=== PATIENT | male | born 1935 | race Caucasian/White ===

== ENCOUNTER → 2016-05-18 | Outpatient (CLI) | payer OTHER ==
[~2016-05-18] MED LIST: ALDACTONE25 MG PO; ECO81 PO; LANTUS SOLOS100 U/M1 SQ; LOP600 PO; METFORMIN HCL850 MG PO; PRILOSEC20 MG PO; PRINIVIL10 MG PO; ZOC10 PO
[2016-05-18 11:58] LABS: CALCIUM 8.6 mg/dL (8.5-10.1); CHLORIDE SERUM 106 mmol/L (98-107); CHOLESTEROL 250 mg/dL (<200); CHOLESTEROL/HDL RATIO 6.8; CREATININE SERUM 0.9 mg/dL (0.7-1.3); GLUCOSE SERUM 78 mg/dL (74-106); HDL CHOLESTEROL 37 mg/dL (40-60); POTASSIUM SERUM 3.7 mmol/L (3.5-5.1); SODIUM SERUM 142 mmol/L (136-145); TRIGLYCERIDES 224 mg/dL (<150)
[2016-05-18 12:36] LABS: BASOPHIL % 0.6 % (0-2); PLATELET COUNT 322 x10^3mcL (130-400)
[2016-05-18 12:39] LABS: RED CELL DISTRIBUTION WIDTH 14.8 % (11.5-14.5)
== END | disposition home or self-care (01) ==
LOC: LB 11:14
PROVIDERS: Family Medicine
DX: E11.9 Type 2 diabetes mellitus without complications (principal); R60.9 Edema, unspecified

== ENCOUNTER 2016-09-26 16:33 | Inpatient (IN) | payer OTHER ==
[~2016-09-26] VITALS: Ht 165.1 cm; Wt 97.6 kg
[2016-09-26 21:59] LABS: BASOPHIL % 0.7 % (0-2); PLATELET COUNT 343 x10^3mcL (130-400)
[2016-09-26 22:04] LABS: RED CELL DISTRIBUTION WIDTH 15.2 % (11.5-14.5)
[2016-09-26 22:19] LABS: CALCIUM 9.3 mg/dL (8.5-10.1); CARBON DIOXIDE 24.3 mmol/L (21-32); CHLORIDE SERUM 108 mmol/L (98-107); CREATININE SERUM 1.1 mg/dL (0.7-1.3); GLUCOSE SERUM 92 mg/dL (74-106); POTASSIUM SERUM 4.3 mmol/L (3.5-5.1); SODIUM SERUM 144 mmol/L (136-145)
[2016-09-26 22:23] LABS: ALBUMIN 3.8 g/dL (3.4-5.0); ALKALINE PHOSPHATASE 71 U/L (46-116); ALT/SGPT 23 U/L (16-63); AMYLASE 72 U/L (25-115); AST/SGOT 14 U/L (15-37); BILIRUBIN TOTAL 0.24 mg/dL (0.20-1.00); LIPASE 146 IU/L (73-393)
[2016-09-26 22:24] LABS: TOTAL PROTEIN, SERUM 8.3 g/dL (6.4-8.2)
[2016-09-27 00:36] VITALS: BP 165/95
[2016-09-27 01:04] VITALS: BP 144/88
[2016-09-27 02:59] LABS: T3 TOTAL 1.05 ng/mL
[2016-09-27 03:10] LABS: FREE T4 1.26 ng/dL (0.76-1.46); FREE THYROXINE INDEX 3.6 ug/dL (1.4-4.5); T4(THYROXINE) 9.6 ug/dL (4.7-13.3)
[2016-09-27 03:13] LABS: MAGNESIUM 1.6 mg/dL (1.8-2.4); PHOSPHOROUS 3.2 mg/dL (2.5-4.9)
[2016-09-27 06:13] VITALS: BP 144/84
[2016-09-27 07:20] VITALS: BP 161/82
[2016-09-27 08:03] LABS: UA SPECIFIC GRAVITY 1.025 (1.005-1.035); microscopic required? YES; urine erythrocyte NEGATIVE (NEGATIVE)
[2016-09-27 08:54] LABS: AMPHETAMINE QUAL UR NONE DETECTED (NEG <=1000)
[2016-09-27 17:53] VITALS: BP 146/80
[2016-09-27 23:26] VITALS: BP 116/64
[2016-09-28 06:28] VITALS: BP 139/72
[2016-09-28 07:18] VITALS: Ht 165.1 cm; Wt 97.6 kg
[2016-09-28 08:17] LABS: PLATELET COUNT 325 x10^3mcL (130-400)
[2016-09-28 08:18] LABS: RED CELL DISTRIBUTION WIDTH 15.2 % (11.5-14.5)
[2016-09-28 08:51] LABS: CARBON DIOXIDE 19.3 mmol/L (21-32); CHLORIDE SERUM 107 mmol/L (98-107); CREATININE SERUM 1.1 mg/dL (0.7-1.3); GLUCOSE SERUM 137 mg/dL (74-106); MAGNESIUM 1.9 mg/dL (1.8-2.4); PHOSPHOROUS 3.4 mg/dL (2.5-4.9); POTASSIUM SERUM 4.4 mmol/L (3.5-5.1); SODIUM SERUM 141 mmol/L (136-145)
[2016-09-28 09:06] LABS: BAND NEUTROPHIL 1 % (0-10); BASOPHIL 0 % (0-2); MONOCYTE 7 % (0-7); SEGMENTED NEUTROPHILS 56 % (37-75); rbc morphology (normal/abnorm) ABNORMAL (NORMAL)
[2016-09-28 10:45] VITALS: BP 115/55
[2016-09-28 11:10] VITALS: BP 122/71
[2016-09-28] MEDS ORDERED: METOPROLOL TART25 M1 PO (12:56)
[2016-09-28] MEDS ORDERED: BG FS (12:58)
[2016-09-28] MEDS ORDERED: TYL325 PO (12:58)
[2016-09-28] MEDS ORDERED: CLOPIDOGREL75 M1 PO (13:23)
[2016-09-28 13:37] VITALS: BP 122/71
== END 2016-09-28 14:20 | disposition short-term general hospital (02) | DRG 286 ==
LOC: ED 16:33 → DU 22:49
PROVIDERS: Emergency Medicine; Internal Medicine Interventional Cardiology; ADMIT Family Medicine
PROC: B2151ZZ Fluoroscopy of Left Heart using Low Osmolar Contrast (ICD-10-PCS; 2016-09-28)
PROC: B2101ZZ Fluoroscopy of Single Coronary Artery using Low Osmolar Contrast (ICD-10-PCS; 2016-09-28)
PROC: 4A023N7 Measurement of Cardiac Sampling and Pressure, Left Heart, Percutaneous Approach (ICD-10-PCS; principal; 2016-09-28 08:30)
DX: I24.9 Acute ischemic heart disease, unspecified (principal); N17.0 Acute kidney failure with tubular necrosis; I50.43 Acute on chronic combined systolic (congestive) and diastolic (congestive) heart failure; E11.65 Type 2 diabetes mellitus with hyperglycemia; E11.51 Type 2 diabetes mellitus with diabetic peripheral angiopathy without gangrene; I10 Essential (primary) hypertension; E78.5 Hyperlipidemia, unspecified; E66.9 Obesity, unspecified; Z68.35 Body mass index [BMI] 35.0-35.9, adult; Z79.4 Long term (current) use of insulin
CPT/HCPCS: CLHCL; 82962; 83880; 84439; C1769; C1887; C1894; J1644; J1815; J2001; J2250; J3010; J3475; J3490; J7030; J7050; Q0092; Q9967

== ENCOUNTER → 2017-06-01 | Outpatient (CLI) | payer OTHER ==
[~2017-06-01] MED LIST changes: +BG FS; +CLOPIDOGREL75 M1 PO; +METOPROLOL TART25 M1 PO; +TYL325 PO
== END | disposition home or self-care (01) ==
LOC: RD 13:52
PROC: B54DZZZ Ultrasonography of Bilateral Lower Extremity Veins (ICD-10-PCS; principal; 2017-06-01)
PROC: B44HZZZ Ultrasonography of Bilateral Lower Extremity Arteries (ICD-10-PCS; 2017-06-01)
DX: M79.89 Other specified soft tissue disorders (principal); M25.569 Pain in unspecified knee